=== PATIENT | female | born 2000 | race African-American/Black ===

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

== ENCOUNTER 2023-09-17 12:25 | Emergency (ER) | payer MEDICAID ==
[~2023-09-17] VITALS: Ht 157.5 cm; Wt 79.0 kg
[2023-09-17 12:33] VITALS: O2SAT 100
[2023-09-17] MEDS ORDERED: POLY10DR17 LEFTEYE (16:00)
[2023-09-17 16:50] VITALS: BP 131/83; PULSE 72; RESP 18; TEMP 98.7
== END 2023-09-17 16:52 | disposition home or self-care (01) ==
LOC: ER 12:29
DX: H10.32 Unspecified acute conjunctivitis, left eye (principal)
CPT/HCPCS: 99283